=== PATIENT | female | born 1980 | race Two or more races ===

== ENCOUNTER → 2018-11-28 | Outpatient (CLI) | payer OTHER | END | disposition home or self-care (01) | LOC: SONOGRAMA 09:08 | DX: N84.0 Polyp of corpus uteri (principal) ==

== ENCOUNTER 2018-12-22 06:59 | Day surgery (SDC) | payer OTHER ==
[~2018-12-22 06:59] MED LIST: CLONAZEPAM2 M1 PO; LAMICTAL ODT100 MG PO; PROZAC PO
== END 2018-12-22 13:43 | disposition home or self-care (01) ==
LOC: CIR.AMB 06:59
DX: N84.0 Polyp of corpus uteri (principal)